=== PATIENT | female | born 1990 | race Caucasian/White ===

== ENCOUNTER 2017-07-16 08:20 | Emergency (ER) | payer OTHER ==
[~2017-07-16] VITALS: Ht 160 cm; Wt 49.9 kg
[~2017-07-16 08:20] MED LIST: AVIANE-28 TABL1 EACH PO; MIRTAZAPINE15 M2 PO; PROMETHAZINE12.5 M2 PO; TRANSDERM-SCOP1 EACH TOP; ZOFRAN ODT4 M1 SL
--- NOTE | 2017-07-16 08:46 | ED GI/GU/ABDOMINAL COMPLAINT ---
History of Present Illness General Chief Complaint: Nausea, Vomiting, Diarrhea Stated Complaint: URI X 1 WEEK VOMITING SINCE 1AM Source: patient, old records, friend Exam Limitations: no limitations Vital Signs & Intake/Output Vital Signs & Intake/Output Vital Signs Date Time Temp Pulse Resp B/P B/P Pulse O2 O2 Flow FiO2 Mean Ox Delivery Rate 07/16 1157 86 20 129/77 10 Room Air 07/16 1155 98.2 88 18 118/57 98 Room Air 07/16 0913 98 Room Air 07/16 0826 97.3 63 18 134/90 97 Room Air Allergies Coded Allergies: ciprofloxacin (From CIPRO) (Severe, SWELLING 01/31/16) Reconcile Medications Hyoscyamine Sulfate (Levsin-Sl) 0.125 MG TAB.SUBL 1-2 TAB SL Q4P PRN abdominal cramps Ibuprofen 600 MG TABLET 1 TAB PO Q6PRN PRN pain, fever with food Levonorgestrel-Ethin Estradiol (Aviane-28 Tablet) 1 EACH TABLET 1 TAB PO DAILY CONTROL (Reported) Loperamide HCl (Imodium A-D) 2 MG TABLET 0 PO SEE ADMIN CRITERIA PRN diarrhea 1 tab after each loose stool up to 7 per day Mirtazapine 15 MG TABLET 1 TAB PO QPM INSOMNIA (Reported) Ondansetron (Zofran Odt) 4 MG TAB.RAPDIS 1 TAB SL TID NAUSEA Ondansetron (Zofran Odt) 4 MG TAB.RAPDIS 1 TAB SL TID PRN nausea Promethazine HCl 12.5 MG TABLET 1 TAB PO Q6-8 NAUSEA Scopolamine Hydrobromide (Transderm-Scop) 1 EACH PATCH.TD.3 1 PAT TOP Q3D NAUSEA apply to the hairless area behind 1 ear at least 4 hours before effect is required; reapply every 3 days as needed Triage Note: C/O BODY ACHES, COUGH, FEVER X 2 DAYS, WITH NAUSEA AND VOMITING SINCE EARLY THIS AM. Triage Nurses Notes Reviewed? yes LMP (ages 10-50): unknown ? n Is pt currently ? No Onset: Evening Duration: continues in ED, waxing and waning Timing: recent history Quality/Severity: aching, mild, moderate, vomiting Location: generalized abdomen Radiation: no radiation Activities at Onset: rest Prior Abdominal Problems: none Past Sexual History: Unobtainable at this time Modifying Factors: Worsens With: eating. Associated Symptoms: abdominal pain, diarrhea, loss of appetite, nausea/vomiting HPI: 2 days prior to admission patient reports having fever chills congestion body aches anorexia. Less than 1 day prior to admission she complains of nausea vomiting frequent loose watery stool abdominal discomfort generalized. She denies chest pain shortness of breath headache dysuria rash bleeding . Past History Travel History Traveled to [place] past 21 day No Medical History Any Pertinent Medical History? see below for history Neurological: NONE EENT: NONE Cardiovascular: NONE Respiratory: NONE Gastrointestinal: NONE Hepatic: NONE Renal: NONE Musculoskeletal: NONE Psychiatric: anxiety Endocrine: NONE Blood Disorders: NONE Cancer(s): NONE APPLIED PSYCHOLOGY CHAIR/Reproductive: NONE Surgical History Surgical History: none Psychosocial History What is your primary language Icelandic Tobacco Use: Current Daily Use Daily Tobacco Use Amount/Type: Smokeless tobacco daily ETOH Use: denies use Family History Hx Contributory? No Review of Systems Review of Systems Constitutional: Reports: see HPI, chills, fever, malaise. EENTM: Reports: see HPI. Respiratory: Reports: see HPI, cough. Denies: sputum production. Cardiovascular: Reports: no symptoms. GI: Reports: see HPI, abdominal pain, diarrhea, nausea, vomiting. Genitourinary: Reports: no symptoms. Musculoskeletal: Reports: no symptoms. Skin: Reports: no symptoms. Neurological/Psychological: Reports: no symptoms. Hematologic/Endocrine: Reports: no symptoms. Immunologic/Allergic: Reports: no symptoms. All Other Systems: Reviewed and Negative Physical Exam Physical Exam General Appearance: well developed/nourished, alert, awake, anxious, moderate distress, thin Head: atraumatic, normal appearance Eyes: Bilateral: normal appearance, PERRL, EOMI, normal inspection. Ears, Nose, Throat, Mouth: hearing grossly normal, dry mucous membranes Neck: normal inspection, supple, full range of motion, normal alignment Respiratory: normal breath sounds, chest non-tender, no respiratory distress, quiet respiration, lungs clear Cardiovascular: regular rate/rhythm, normal peripheral pulses, norml femoral pulses equa Peripheral Pulses: 4+ carotid (R), 4+ carotid (L) Gastrointestinal: normal bowel sounds, soft, non-tender, no organomegaly Back: normal inspection, normal range of motion, no vertebral tenderness Extremities: normal range of motion, no ligament instability Neurologic/Psych: no motor/sensory deficits, awake, alert, oriented x 3, normal gait, normal 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 No Sepsis Present: No Sepsis Focused Exam Completed? No Progress Differential Diagnosis: gastritis, pancreatitis, PUD/GERD Plan of Care: Orders Procedure Date/time Status RAPID VIRAL INFLUENZA A 07/16 832 Complete LIPASE 07/16 832 Complete HUMAN BETA HCG SCREEN 07/16 832 Complete COMPREHENSIVE METABOLIC PANEL 07/16 832 Complete CBC WITHOUT DIFFERENTIAL 07/16 832 Complete Laboratory Tests 07/16/17 0947: Anion Gap 15, Estimated GFR > 60, BUN/Creatinine Ratio 20.0, Glucose 127 H, Calcium 9.0, Total Bilirubin 0.8, AST 24, ALT 32, Alkaline Phosphatase 57, Total Protein 7.3, Albumin 4.4, Globulin 2.9, Albumin/Globulin Ratio 1.5, Lipase 29, Total Beta HCG NEGATIVE 07/16/17 0852: CBC w Diff MAN DIFF ORDERED, RBC 5.64 H, MCV 65.7 L, MCH 21.4 L, MCHC 32.5 L , RDW 15.3 H, MPV 8.2, Gran % 92.2 H, Lymphocytes % 6.1 L, Monocytes % 1.4 L , Eosinophils % 0, Basophils % 0.3, Absolute Granulocytes 12.3 H, Segmented Neutrophils 84 H, Band Neutrophils 5, Absolute Lymphocytes 0.8 L, Lymphocytes 9 L, Monocytes 2, Absolute Monocytes 0.2, Absolute Eosinophils 0, Absolute Basophils 0, Platelet Estimate ADEQUATE, Hypochromic-Microcytic 1+, Anisocytosis 1+, Microcytic Cells 1+ Microbiology 07/17 851 NASOPHARYN: Influenza Virus A & B Rapid Smear - COMP Initial ED EKG: none Departure Departure Time of Disposition: 1300 Disposition: HOME OR SELF CARE Condition: Stable Clinical Impression Primary Impression: Acute viral syndrome Secondary Impressions: Dehydration syndrome Referrals: Hope BILLINGS,Cecily Gee (PCP/Family) Departure Forms: Customer Survey General Discharge Information RELEASE- WORK Prescriptions: Current Visit Scripts Ondansetron (Zofran Odt) 1 TAB SL TID PRN nausea #10 TAB Loperamide HCl (Imodium A-D) 0 PO SEE ADMIN CRITERIA PRN diarrhea #24 TAB 1 tab after each loose stool up to 7 per day Hyoscyamine Sulfate (Levsin-Sl) 1-2 TAB SL Q4P PRN abdominal cramps #30 TAB Ibuprofen 1 TAB PO Q6PRN PRN pain, fever #50 TAB with food
[2017-07-16 09:19] LABS: ABSOLUTE BASOPHIL COUNT 0 /CUMM (0.0-0.2); ABSOLUTE EOSINOPHIL COUNT 0 /CUMM (0.0-0.7); ABSOLUTE GRANULOCYTE CT 12.3 /CUMM (1.4-6.5); ABSOLUTE LYMPH COUNT 0.8 /CUMM (1.2-3.4); ABSOLUTE MONOCYTE COUNT 0.2 /CUMM (0.10-0.60); BASOPHIL % 0.3 % (0.0-2.0); EOSINOPHIL % 0 % (0-5); GRANULOCYTE % 92.2 % (42.2-75.2); HEMATOCRIT 37.1 % (37-47); MEAN CORPUSCULAR HGB 21.4 PG (27.0-31.0); MEAN CORPUSCULAR HGB CONC 32.5 G/DL (33.0-37.0); MEAN CORPUSCULAR VOLUME 65.7 FL (81.0-99.0); MEAN PLATELET VOLUME 8.2 FL (7.4-10.4); PLATELET COUNT 366 /CUMM (130-400); RBC DISTRIBUTION WIDTH 15.3 % (11.5-14.5); RED BLOOD CELL CT 5.64 /CUMM (4.20-5.40); WHITE BLOOD CELL COUNT 13.3 /CUMM (4.8-10.8)
[2017-07-16] MEDS ORDERED: ZOFRAN ODT4 M1 SL (11:13)
[2017-07-16] MEDS ORDERED: IBUPROFEN600 M1 PO (11:13)
[2017-07-16] MEDS ORDERED: IMODIUM A-D2 M1 PO (11:13)
[2017-07-16] MEDS ORDERED: LEVSIN-SL0.125 MG SL (11:13)
[2017-07-16 14:06] VITALS: BP 117/56
== END 2017-07-16 14:13 ==
LOC: ERH 08:20
PROVIDERS: Emergency Medicine
DX: B34.9 Viral infection, unspecified (principal); E86.0 Dehydration; R10.9 Unspecified abdominal pain; R19.7 Diarrhea, unspecified; R11.2 Nausea with vomiting, unspecified
CPT/HCPCS: 87804; 87804-59; 96374; 96375; 96376; J1200; J2765

== ENCOUNTER 2017-12-09 14:14 | Emergency (ER) | payer OTHER ==
[~2017-12-09] VITALS: Ht 160 cm; Wt 47.6 kg
[~2017-12-09 14:14] MED LIST changes: +IBUPROFEN600 M1 PO; +IMODIUM A-D2 M1 PO; +LEVSIN-SL0.125 MG SL
[2017-12-09 14:23] VITALS: BP 107/80
[2017-12-09 16:36] LABS: HEMATOCRIT 37.8 % (37-47); MEAN CORPUSCULAR HGB 21.5 PG (27.0-31.0); MEAN CORPUSCULAR HGB CONC 31.9 G/DL (33.0-37.0); MEAN CORPUSCULAR VOLUME 67.3 FL (81.0-99.0); MEAN PLATELET VOLUME 7.9 FL (7.4-10.4); PLATELET COUNT 364 /CUMM (130-400); RBC DISTRIBUTION WIDTH 15.4 % (11.5-14.5); RED BLOOD CELL CT 5.62 /CUMM (4.20-5.40); WHITE BLOOD CELL COUNT 19.7 /CUMM (4.8-10.8)
--- NOTE | 2017-12-09 17:35 | ED GENERAL ADULT ---
History of Present Illness General Chief Complaint: General Adult Stated Complaint: BIBA NOT FEELING WELL Source: patient Exam Limitations: no limitations Vital Signs & Intake/Output Vital Signs & Intake/Output Vital Signs Date Time Temp Pulse Resp B/P B/P Pulse O2 O2 Flow FiO2 Mean Ox Delivery Rate 12/09 1758 Room Air 12/09 1423 98.6 84 18 107/80 98 Room Air Allergies Coded Allergies: ciprofloxacin (From CIPRO) (Severe, SWELLING 01/31/16) lactose (Intermediate, GI UPSET 12/09/17) Reconcile Medications Hyoscyamine Sulfate (Levsin-Sl) 0.125 MG TAB.SUBL 1-2 TAB SL Q4P PRN abdominal cramps Ibuprofen 600 MG TABLET 1 TAB PO Q6PRN PRN pain, fever with food Levonorgestrel-Ethin Estradiol (Aviane-28 Tablet) 1 EACH TABLET 1 TAB PO DAILY CONTROL (Reported) Loperamide HCl (Imodium A-D) 2 MG TABLET 0 PO SEE ADMIN CRITERIA PRN diarrhea 1 tab after each loose stool up to 7 per day Mirtazapine 15 MG TABLET 1 TAB PO QPM INSOMNIA (Reported) Ondansetron (Zofran Odt) 4 MG TAB.RAPDIS 1 TAB SL TID NAUSEA Ondansetron (Zofran Odt) 4 MG TAB.RAPDIS 1 TAB SL TID PRN nausea Ondansetron (Zofran Odt) 4 MG TAB.RAPDIS 1 TAB SL TID PRN nausea Promethazine HCl 12.5 MG TABLET 1 TAB PO Q6-8 NAUSEA Scopolamine Hydrobromide (Transderm-Scop) 1 EACH PATCH.TD.3 1 PAT TOP Q3D NAUSEA apply to the hairless area behind 1 ear at least 4 hours before effect is required; reapply every 3 days as needed Triage Note: 27F WAS SEEN YESTERDAY AT [facility] FOR N/V, RECEIVED COMPAZINE AND TODAY DEVELOPED ?EPS SYMPTOMS WITH JITTERINESS, MUSCLE SPASMS, ANXIETY, AND DISORIENTATION WITH AMBULATION. ARRIVES WITH PREHOSP #20 TO R HAND WITH NS IVF BOLUS RUNNING AND PT RECEIVED IVP BENADRYL. INITIALLY HR 130'S AND CURRENTLY 80'S. NO OVERT EPS SYMPTOMS OBSERVED, PT APPEARS CALM. NO ACTIVE VOMITING. Triage Nurses Notes Reviewed? yes Onset: Gradual Duration: hour(s): Timing: constant : No Patient currently breastfeeds: No HPI: 27 y/o female with a h/o anxiety presenting with feeling of jitteriness, muscle spasms, and intermittent disequilibrium over the past ~12 hours after receiving compazine. Reports she was seen at [facility] last night for LUQ pain with N/V , had unremarkable labs, and was dx with gastitis. Was given compazine with good relief of her nausea and vomiting. States her abd pain and N/V have resolved. Was given 50mg of IV benadryl by EMS with mild decrease in her symptoms. Pt requesting IV fluids as she thinks this will help to flush the medication out of her system faster. Denies fevers, tremors, inability to ambulate. (Ekaterina Carranza) Past History Travel History Traveled to [place] past 21 day No Medical History Any Pertinent Medical History? 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 No (Ekaterina Carranza) Review of Systems Review of Systems Constitutional: Reports: no symptoms. EENTM: Reports: no symptoms. Respiratory: Reports: no symptoms. Cardiovascular: Reports: no symptoms. GI: Reports: see HPI. Genitourinary: Reports: no symptoms. Musculoskeletal: Reports: no symptoms. Skin: Reports: no symptoms. Neurological/Psychological: Reports: see HPI. Hematologic/Endocrine: Reports: no symptoms. Immunologic/Allergic: Reports: no symptoms. All Other Systems: Reviewed and Negative (Ekaterina Carranza) Physical Exam Physical Exam General Appearance: well developed/nourished, no apparent distress, alert, awake , comfortable Head: atraumatic, normal appearance Eyes: Bilateral: normal appearance, PERRL, EOMI. 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 Core Measures ACS in differential dx? No CVA/TIA Diagnosis: No Sepsis Present: No Sepsis Focused Exam Completed? No (Pk ARNDT,Ekaterina) Progress Differential Diagnoses I considered the following diagnoses in my evaluation of the patient: [EPS vs adverse med reaction vs anxiety] Plan of Care: Orders Procedure Date/time Status LACTIC ACID 12/09 1856 Active URINALYSIS 12/09 1733 Active LIPASE 12/09 1556 Complete LACTIC ACID 12/09 1556 Complete HUMAN BETA HCG SCREEN 12/09 155 Complete COMPREHENSIVE METABOLIC PANEL 12/09 155 Complete CBC WITHOUT DIFFERENTIAL 12/09 155 Complete Laboratory Tests 12/09/17 1618: Anion Gap 15, Estimated GFR > 60, BUN/Creatinine Ratio 16.7, Glucose 67, Lactic Acid 1.2, Calcium 9.5, Total Bilirubin 0.9, AST 26, ALT 36, Alkaline Phosphatase 60, Total Protein 7.6, Albumin 4.9, Globulin 2.7, Albumin/Globulin Ratio 1.8, Lipase 278, Total Beta HCG NEGATIVE, CBC w Diff MAN DIFF ORDERED, RBC 5.62 H, MCV 67.3 L, MCH 21.5 L, MCHC 31.9 L, RDW 15.4 H, MPV 7.9, Segmented Neutrophils 82 H, Band Neutrophils 1, Lymphocytes 12 L, Monocytes 5, Platelet Estimate ADEQUATE, Hypochromic-Microcytic 1+, Poikilocytosis FEW, Anisocytosis 1 +, Microcytic Cells 1+, Target Cells FEW, Ovalocytes FEW, Fld Total RBCs Counted 100 Labs show leukocytosis of 19. Likely related to viral gastritis. Instructed to f /u with her PMD for repeat labs and re-eval. States she feels better after IV benadryl and IV fluids. Requesting to be discharged home. Remains well appearing with no signs of EPS. Given new rx zofran in case her nausea returns. Given strict return precautions. Initial ED EKG: none (Pk ARNDT,Ekaterina) Departure Departure Disposition: HOME OR SELF CARE Condition: Stable Clinical Impression Primary Impression: Nausea & vomiting Secondary Impressions: Medication reaction Referrals: Hope BILLINGS,Cecily Gee (PCP/Family) Additional Instructions: Take benadryl 25-50mg every 6 hours until symptoms resolve. Use zofran as needed for nausea. Follow up with your primary care provider for re-evaluation. Return to the emergency department for any new or worsening symptoms. 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 I have also reviewed all the pertinent lab results and diagnostic results. I agree with the findings and the plan of care as documented in the PA's/STEAMTABLE WORKER's documentation. [X] I have reviewed the ED Record and agree with the PA's/STEAMTABLE WORKER's documentation. [] Additions or exceptions (if any) to the PAs/STEAMTABLE WORKER's note and plan are summarized below: [] (Lexa BILLINGS,Javon Maciel) Critical Care Note Critical Care Note Critical Care Time: non-applicable (Ekaterina Carranza)
[2017-12-09] MEDS ORDERED: ZOFRAN ODT4 M1 SL (17:37)
== END 2017-12-09 17:59 ==
LOC: ERH 14:14
PROVIDERS: Physician Assistant
DX: R11.2 Nausea with vomiting, unspecified (principal); T43.3X5A Adverse effect of phenothiazine antipsychotics and neuroleptics, initial encounter
CPT/HCPCS: 96374; J2405